=== PATIENT | male | born 1970 | race Caucasian/White ===

== ENCOUNTER 2017-12-26 23:01 | Inpatient (IN) | payer OTHER ==
[2017-12-26 23:34] LABS: BASO # 0.1 x10^3/uL (0.0-0.2); BASO % 0 % (0-3); EOS # 0.1 x10^3/uL (0.0-0.7); EOS % 1 % (0-3); HEMOGLOBIN 15.1 g/dL (13.0-17.5); LYMPH % 17 % (24-48); MEAN CORPUSCULAR HEMOGLOBIN 27 pg (25-35); MEAN CORPUSCULAR HGB CONC 33 g/dL (31-37); MEAN CORPUSCULAR VOLUME 84 fL (79-100); MONO # 1.1 x10^3/uL (0.0-1.1); MONO % 6 % (0-9); NEUT % 76 % (31-73); PLATELET COUNT 167 x10^3/uL (140-400); RED CELL DISTRIBUTION WIDTH 14.5 % (11.5-14.5); WHITE BLOOD COUNT 17.2 x10^3/uL (4.0-11.0)
[2017-12-26 23:36] LABS: ADD MAN DIFF? YES
[2017-12-26 23:38] LABS: ANION GAP 13 (6-14); BLOOD UREA NITROGEN 11 mg/dL (8-26); CALCIUM 8.7 mg/dL (8.5-10.1); CARBON DIOXIDE 22 mmol/L (21-32); CHLORIDE 99 mmol/L (98-107); CREATININE 1.1 mg/dL (0.7-1.3); GFR 71.8; GLUCOSE 329 mg/dL (70-99); POTASSIUM 4.1 mmol/L (3.5-5.1); SODIUM 134 mmol/L (136-145)
[2017-12-26] MEDS: IV NORMAL SALINE 1000ML BAG 1,000 ML IV (23:45)
[2017-12-26 23:52] LABS: % BANDS 7 % (0-9); % BASOS 2 % (0-3); % LYMPHS 23 % (24-48); % MONOS 6 % (0-10); % SEGS 62 % (35-66)
[2017-12-26 23:53] LABS: THYROID STIM HORMONE (TSH) 3.696 uIU/mL (0.358-3.74); TROPONINI 0.225 ng/mL (0.000-0.055)
[2017-12-26 23:53] LABS: PLT ESTIMATE ADEQUATE (ADEQUATE)
[2017-12-26 23:54] LABS: AGAP ISTAT 17 mmol/L (6-14); BUN ISTAT 11 mg/dL (8-26); CHLORIDE ISTAT 98 mmol/L (98-110); CREATININE ISTAT 0.9 mg/dL (0.5-1.4); GLUCOSE ISTAT 328 mg/dL (70-99); HEMATOCRIT ISTAT 47 % (37-52); ION CA ISTAT 1.17 mmol/L (1.13-1.32); POTASSIUM ISTAT 4.5 mmol/L (3.5-5.0); SODIUM ISTAT 136 mmol/L (135-145); TOT CO2 ISTAT 25 mmol/L (23-32)
[2017-12-27] MEDS: IOHEXOL 300 MG/ML 100ML VIAL. IV (00:10)
[2017-12-27] MEDS ORDERED: CONTRAST GIVEN MC (00:15)
[2017-12-27] MEDS: IV NORMAL SALINE 1000ML BAG 1,000 ML IV ×13 (00:31→21:58)
[2017-12-27] MEDS: HEPARIN for IV BOLUS 10,000 UNIT/10 ML VIAL. IV (00:44)
[2017-12-27] MEDS ORDERED: HEPARIN for IV BOLUS 10,000 UNIT/10 ML VIAL. IV (00:45)
[2017-12-27] MEDS: HEPARIN 25,000UTS/500ML PREMIX 500 ML IV ×2 (00:46→17:17)
[2017-12-27 00:52] LABS: INR 1.1 (0.8-1.1); PARTIAL THROMBOPLASTIN TIME 23 SEC (24-38); PROTHROMBIN TIME PATIENT 13.7 SEC (11.7-14.0)
[2017-12-27] MEDS: WARFARIN 7.5 MG TABLET. PO (01:20)
[2017-12-27] MEDS ORDERED: ONDANSETRON PF 4 MG/2 ML VIAL. IV ×2 (01:30→13:45)
[2017-12-27] MEDS ORDERED: metFORMIN 500 MG TABLET PO (01:46)
[2017-12-27 02:13] LABS: POC GLUCOSE 325 mg/dL (70-99)
[2017-12-27] MEDS: INSULIN ASPART 300 UNITS/3 ML INSULN.PEN SQ ×3 (02:22→16:44)
[2017-12-27 05:58] LABS: TROPONINI 0.274 ng/mL (0.000-0.055)
[2017-12-27 06:07] LABS: LACTIC ACID 1.9 mmol/L (0.4-2.0)
[2017-12-27 07:38] LABS: UNFRACTIONATED HEPARIN TESTING 0.76 IU/mL (0.30-0.70)
[2017-12-27 07:58] LABS: POC GLUCOSE 212 mg/dL (70-99)
[2017-12-27 08:11] LABS: TROPONINI 0.264 ng/mL (0.000-0.055)
[2017-12-27] MEDS ORDERED: DEXTROSE 50% 25 GM / 50ML DISP.SYRIN. IV (09:30)
[2017-12-27] MEDS: ANTI-COAG MONITOR BY PHARMACY. MC (10:47)
[2017-12-27 11:11] LABS: INR 1.1 (0.8-1.1)
[2017-12-27 12:16] LABS: POC GLUCOSE 245 mg/dL (70-99)
[2017-12-27] MEDS ORDERED: ACETAMINOPHEN 325 MG TABLET. PO (13:45)
[2017-12-27] MEDS ORDERED: hydrALAZINE 20 MG/ML VIAL. IVP (13:45)
[2017-12-27] MEDS ORDERED: DOCUSATE SODIUM 100 MG CAPSULE. PO (13:45)
[2017-12-27] MEDS ORDERED: traMADol 50 MG TABLET PO (13:45)
[2017-12-27] MEDS ORDERED: MORPHINE SULFATE 4 MG/ML DISP.SYRIN. IV (13:45)
[2017-12-27 14:35] LABS: UNFRACTIONATED HEPARIN TESTING 0.42 IU/mL (0.30-0.70)
[2017-12-27 15:22] LABS: MRSA BY PCR Negative (Negative)
[2017-12-27] MEDS: WARFARIN 5 MG TABLET. PO (16:29)
[2017-12-27 16:47] LABS: POC GLUCOSE 217 mg/dL (70-99)
[2017-12-27 20:12] LABS: UNFRACTIONATED HEPARIN TESTING 0.33 IU/mL (0.30-0.70)
[2017-12-27 20:53] LABS: POC GLUCOSE 231 mg/dL (70-99)
[2017-12-28 00:10] LABS: HEMOGLOBIN A1C 9.5 % (4.8-5.6)
[2017-12-28 05:22] LABS: ADD MAN DIFF? NO
[2017-12-28 05:33] LABS: BASO % 1 % (0-3); EOS # 0.2 x10^3/uL (0.0-0.7); EOS % 2 % (0-3); HEMATOCRIT 39.5 % (39.0-53.0); LYMPH # 3.2 x10^3/uL (1.0-4.8); LYMPH % 36 % (24-48); MEAN CORPUSCULAR HEMOGLOBIN 28 pg (25-35); MEAN CORPUSCULAR HGB CONC 33 g/dL (31-37); MEAN CORPUSCULAR VOLUME 85 fL (79-100); MONO # 0.8 x10^3/uL (0.0-1.1); MONO % 9 % (0-9); NEUT # 4.8 x10^3uL (1.8-7.7); NEUT % 54 % (31-73); PLATELET COUNT 142 x10^3/uL (140-400); RED BLOOD COUNT 4.68 x10^6/uL (4.30-5.70); RED CELL DISTRIBUTION WIDTH 14.9 % (11.5-14.5); WHITE BLOOD COUNT 8.9 x10^3/uL (4.0-11.0)
[2017-12-28 05:52] LABS: ANION GAP 8 (6-14); BLOOD UREA NITROGEN 11 mg/dL (8-26); CALCIUM 8.1 mg/dL (8.5-10.1); CARBON DIOXIDE 27 mmol/L (21-32); CHLORIDE 103 mmol/L (98-107); GFR 80.1; GLUCOSE 236 mg/dL (70-99); POTASSIUM 4.5 mmol/L (3.5-5.1); SODIUM 138 mmol/L (136-145)
[2017-12-28 06:03] LABS: UNFRACTIONATED HEPARIN TESTING 0.25 IU/mL (0.30-0.70)
[2017-12-28 06:06] LABS: INR 1.2 (0.8-1.1); PROTHROMBIN TIME PATIENT 14.8 SEC (11.7-14.0)
[2017-12-28] MEDS: HEPARIN for IV BOLUS 10,000 UNIT/10 ML VIAL. IV (06:46)
[2017-12-28 07:28] LABS: POC GLUCOSE 208 mg/dL (70-99)
[2017-12-28] MEDS: HEPARIN 25,000UTS/500ML PREMIX 500 ML IV (08:15)
[2017-12-28] MEDS: INSULIN ASPART 300 UNITS/3 ML INSULN.PEN SQ ×3 (08:16→17:00)
[2017-12-28 11:14] LABS: POC GLUCOSE 212 mg/dL (70-99)
[2017-12-28 14:04] LABS: UNFRACTIONATED HEPARIN TESTING 0.36 IU/mL (0.30-0.70)
[2017-12-28] MEDS: GLIMEPIRIDE 2 MG TABLET. PO (15:10)
[2017-12-28] MEDS ORDERED: WARFARIN 7.5 MG TABLET. PO (16:00)
[2017-12-28 16:46] LABS: POC GLUCOSE 150 mg/dL (70-99)
[2017-12-28] MEDS ORDERED: FONDAPARINUX SQ (17:00)
[2017-12-28] MEDS: FONDAPARINUX 10 MG/0.8 ML SQ (17:02)
[2017-12-28 21:15] LABS: POC GLUCOSE 127 mg/dL (70-99)
[2017-12-28] MEDS: APIXABAN 5 MG TABLET. PO (21:33)
[2017-12-29 06:28] LABS: INR 1.3 (0.8-1.1); PROTHROMBIN TIME PATIENT 15.6 SEC (11.7-14.0)
[2017-12-29] MEDS: ANTI-COAG MONITOR BY PHARMACY. MC (07:54)
[2017-12-29 07:58] LABS: POC GLUCOSE 144 mg/dL (70-99)
[2017-12-29] MEDS: INSULIN ASPART 300 UNITS/3 ML INSULN.PEN SQ ×3 (08:00→17:00)
[2017-12-29] MEDS: GLIMEPIRIDE 2 MG TABLET. PO (08:21)
[2017-12-29] MEDS: APIXABAN 5 MG TABLET. PO ×2 (08:22→20:39)
[2017-12-29 12:20] LABS: POC GLUCOSE 174 mg/dL (70-99)
[2017-12-29 17:03] LABS: POC GLUCOSE 119 mg/dL (70-99)
[2017-12-29] MEDS: FONDAPARINUX 10 MG/0.8 ML SQ (17:41)
[2017-12-29 20:52] LABS: POC GLUCOSE 164 mg/dL (70-99)
[2017-12-30 04:15] LABS: ADD MAN DIFF? NO
[2017-12-30 04:58] LABS: BASO % 1 % (0-3); EOS # 0.2 x10^3/uL (0.0-0.7); EOS % 3 % (0-3); HEMOGLOBIN 13.1 g/dL (13.0-17.5); LYMPH # 2.3 x10^3/uL (1.0-4.8); LYMPH % 34 % (24-48); MEAN CORPUSCULAR HEMOGLOBIN 28 pg (25-35); MEAN CORPUSCULAR HGB CONC 34 g/dL (31-37); MEAN CORPUSCULAR VOLUME 83 fL (79-100); MONO # 0.7 x10^3/uL (0.0-1.1); MONO % 10 % (0-9); NEUT # 3.6 x10^3uL (1.8-7.7); NEUT % 53 % (31-73); PLATELET COUNT 173 x10^3/uL (140-400); RED BLOOD COUNT 4.69 x10^6/uL (4.30-5.70); RED CELL DISTRIBUTION WIDTH 14.5 % (11.5-14.5); WHITE BLOOD COUNT 6.9 x10^3/uL (4.0-11.0)
[2017-12-30 05:15] LABS: ANION GAP 9 (6-14); BLOOD UREA NITROGEN 10 mg/dL (8-26); CALCIUM 8.4 mg/dL (8.5-10.1); CARBON DIOXIDE 28 mmol/L (21-32); CHLORIDE 103 mmol/L (98-107); CHOLESTEROL 180 mg/dL (0-200); CREATININE 0.8 mg/dL (0.7-1.3); GFR 103.6; GLUCOSE 158 mg/dL (70-99); HDLC 31 mg/dL (40-60); LDLC 127 mg/dL (0-100); NON-HDL CHOLESTEROL 149 mg/dL (0-129); POTASSIUM 3.7 mmol/L (3.5-5.1); SODIUM 140 mmol/L (136-145); TRIGLYCERIDES 112 mg/dL (0-150); VLDLC 22 mg/dL (0-40)
[2017-12-30 05:20] LABS: CHOLESTEROL/HDL RATIO 5.8
[2017-12-30 08:07] LABS: POC GLUCOSE 154 mg/dL (70-99)
[2017-12-30] MEDS: GLIMEPIRIDE 2 MG TABLET. PO (08:49)
[2017-12-30] MEDS: APIXABAN 5 MG TABLET. PO (08:49)
[2017-12-30] MEDS: INSULIN ASPART 300 UNITS/3 ML INSULN.PEN SQ ×2 (08:53→12:00)
[2017-12-30 12:28] LABS: POC GLUCOSE 110 mg/dL (70-99)
[2017-12-30] MEDS: FONDAPARINUX 10 MG/0.8 ML SQ (16:32)
[2018-01-04] MEDS ORDERED: APIXABAN 5 MG TABLET. PO (21:00)
== END 2017-12-30 16:30 | disposition home or self-care (01) | DRG 175 ==
LOC: ER 23:01 → 1 WEST ICU 12-27 01:20 → 6 NORTH 12-27 17:31 → 2 SOUTH 12-27 17:32
DX: I26.92 Saddle embolus of pulmonary artery without acute cor pulmonale (principal); J96.01 Acute respiratory failure with hypoxia; D72.829 Elevated white blood cell count, unspecified; E11.65 Type 2 diabetes mellitus with hyperglycemia; E66.01 Morbid (severe) obesity due to excess calories; Z68.31 Body mass index [BMI] 31.0-31.9, adult; Z79.01 Long term (current) use of anticoagulants; Z82.49 Family history of ischemic heart disease and other diseases of the circulatory system; Z86.718 Personal history of other venous thrombosis and embolism; Z87.891 Personal history of nicotine dependence; Z88.0 Allergy status to penicillin
CPT/HCPCS: 36415; 71045; 71275; 80047; 80048; 80061; 82962; 83036; 83605; 84443; 84484; 85007; 85025; 85520; 85610; 85730; 87641; 93005; 93306; 93970; 94618; 96374; 99291-25; 99292; J1644; J1652; J1815; J7030; Q9967

== ENCOUNTER → 2018-02-23 | Outpatient (CLI) | payer OTHER ==
[~2018-02-23] MED LIST: CONTRAST GIVEN. MC
[2018-02-23] MEDS: IOHEXOL 300 MG/ML 100ML VIAL. IV (08:36)
== END | disposition home or self-care (01) ==
LOC: CT 08:19
DX: R07.9 Chest pain, unspecified (principal)
CPT/HCPCS: 71275; Q9967

== ENCOUNTER → 2018-06-15 | Day surgery (SDC) | payer OTHER ==
[~2018-06-15] MED LIST changes: +APIX5TAB PO; -CONTRAST GIVEN. MC; +GLIM2TAB PO; +IV RINGERS,LACTATED 1000ML 1,000 ML IV SCH; +LIDOCAINE 1% PF 2 ML VIAL. ID PRN; +LISI40TA2 PO; +METF1000 PO; +METO-239 PO; +MIDAZOLAM HCL/PF 2 MG/2 ML VIAL. IV PRN; +PROPOFOL 20 ML IV ONE; +fentaNYL PF VIAL 100 MCG/2 ML VIAL IV PRN
[2018-06-15 10:02] VITALS: BP 117/75
--- NOTE | 2018-06-16 16:09 | PATHOLOGY ---
[facility] Accession Number: [id number] . 01 Material submitted: . DISTAL ESOPHAGEAL BX . 01 Clinical history: . Pre-OP DX: Dysphagia Post-OP DX: Reflux esophagitis . 02 Diagnosis: Esophageal biopsies, distal esophagus: - Segments of hyperplastic squamous esophageal mucosa consistent with reflux esophagitis. [facility]/06/16/2018 . 02 Comment: Sections of the distal esophageal biopsy reveal segments of hyperplastic squamous esophageal mucosa showing focal chronic inflammation and a rare intraepithelial eosinophil. The findings are consistent with reflux esophagitis. There is no evidence of Sidhu's change, dysplasia, or malignancy. ([facility] 06/16/2018) . 02 Electronically signed: . Jayjay Berrios MD, Pathologist NPI- [id number] . 01 Gross description: . Received in formalin labeled "Rosalio Ryder, distal esophageal BX," are multiple segments of arizmendi soft tissue measuring 0.9 x 0.3 x 0.1 cm in aggregate dimensions. The specimen is filtered and entirely submitted in cassette A1. ([facility]; 06/15/2018) TOB/TOB . 02 Pathologist provided ICD-10: K21.0 . 02 CPT . 519994 Specimen Comment: A courtesy copy of this report has been sent to Specimen Comment: [phone], . Specimen Comment: Report sent to and Performed at: 01 [facility] [address], [place] [id number] MD Dariel Dunlap MD Phone: [phone] Performed at: 02 [facility] [address] [place], [place] [id number] MD Jayjay Berrios MD Phone: [phone]
== END | disposition home or self-care (01) ==
LOC: SURG 08:06
PROVIDERS: ATTEND Internal Medicine Gastroenterology
DX: K21.0 Gastro-esophageal reflux disease with esophagitis (principal); K22.2 Esophageal obstruction; Z88.0 Allergy status to penicillin; Z82.49 Family history of ischemic heart disease and other diseases of the circulatory system; Z83.3 Family history of diabetes mellitus; Z72.89 Other problems related to lifestyle
CPT/HCPCS: 43239; 43450; 88305; J2704

== ENCOUNTER → 2021-05-30 | Outpatient (CLI) | payer OTHER ==
[2021-03-29 11:00] VITALS: BP 117/61
[~2021-05-30] MED LIST changes: +AZIT250T6 PO; +DAPA5TAB PO; +DEXA4TAB PO; +DOXY100T PO; +INSU100I13 SQ; -IV RINGERS,LACTATED 1000ML 1,000 ML IV SCH; +LACT1CAP21 PO; -LIDOCAINE 1% PF 2 ML VIAL. ID PRN; -LISI40TA2 PO; +LISI40TA6 PO; -MIDAZOLAM HCL/PF 2 MG/2 ML VIAL. IV PRN; +PROM5SYR2 PO; -PROPOFOL 20 ML IV ONE; +ZINC220C5 PO; +ZOLP5TAB PO; -fentaNYL PF VIAL 100 MCG/2 ML VIAL IV PRN
--- NOTE | 2021-05-30 11:18 | RESP ---
DATE OF SERVICE: 05/30/2021 PULMONARY FUNCTION TESTS ATTENDING PHYSICIAN: Sean Bhatt MD. The patient underwent PFTs at [facility]. The patient's FVC was 3.85, which is 74% predicted. FEV1 of 3.35, which is 83% predicted. FEV1/FVC ratio was normal. No bronchodilators given. Lung volumes showed a total lung capacity of 120% predicted and residual volume of 230% predicted. Diffusion capacity was 110% predicted. IMPRESSION: 1. No evidence of obstructive airway disease. 2. No bronchodilators given. 3. Lung volumes consistent with air trapping and hyperinflation. 4. Normal diffusion capacity. NETTE/TRUE/FLORI DR: Martín TID: [id number]
== END ==
LOC: PF 08:54
PROVIDERS: ATTEND Internal Medicine Pulmonary Disease
DX: R06.02 Shortness of breath (principal)
CPT/HCPCS: 94010; 94726; 94729